=== PATIENT | male | born 1950 | race Caucasian/White ===

== ENCOUNTER 2018-07-06 12:38 | Emergency (ER) | payer MEDICARE, MEDICAID, SELFPAY ==
[2018-07-06 12:43] VITALS: BP 155/68; PULSE 66; RESP 12; TEMP 37.1; O2SAT 95
[2018-07-06 13:52] VITALS: BP 151/78; PULSE 60; RESP 12; TEMP 37.1; O2SAT 96
[2018-07-06 13:58] VITALS: BP 151/78; PULSE 60; RESP 12; TEMP 37.1; O2SAT 96
--- NOTE | 2018-07-07 08:38 | CMPROGNOTE_ITS ---
Care Management Progress Note 07/07-Alejandra POWERS requested assistance with a [facility] f/u as soon as possible for floaters. Referral, demographics, and provider note faxed to [facility] this am.
--- NOTE | 2018-07-07 08:51 | ED.GENADUL_ITS ---
Discharge Plan Disposition Patient Disposition: HOME Condition: Fair Discharge Details Chief Complaint: Trauma Clinical Impression: Hematoma, Contusion, Acute shoulder pain, Vitreous floaters of left eye Primary Care Provider: Zoie Lynne ED Provider: Alejandra Godwin Home Meds and New Rx's Prescriptions: Continue aspirin 81 mg Tablet,Chewable 81 mg PO DAILY RF: 0 methadone 10 mg/mL Solution 70 mg DAILY RF: 0 lisinopril 5 mg Tablet 5 mg PO DAILY RF: 0 Discharge Instructions Instructions: Contusion in Adults (ED), Hematoma (ED) Additional Instructions: Encourage hydration. Tylenol and/or Motrin as needed for discomfort. Gentle stretching and frequent ambulation to help with discomfort. Please follow up with primary care in one week for reevaluation of your buttock and shoulder pain. Please follow up with [facility] as soon as possible for reevaluation of the floaters in your left eye. If you develop fevers/chills, headache, eye pain, visual changes, altered sensation in your legs, weakness, change in bowel or bladder habits or other new/worsening symptoms please seek care urgently once again. Referrals: Zoie Lynne [Primary Care Provider] - Discharge Data Discharge Date/Time-TO BE ENTERED AT DEPARTURE: 07/06/18 14:00 Medical Decision Making Patient presents today with chief complaint of right buttock ecchymosis. Patient reports that he fell 3 days ago from a ladder. Does not sound that he fell directly from ladder but rather try to catch himself on the way down. Landed primarily on the right buttock. States that initially, he was endorsing some right shoulder pain as well as right-sided buttock pain. The shoulder has improved. Patient has full range of motion of the right shoulder. No pain with Neer or Randhawa. Normal speeds exam. No Willie deformity. Strength is 5 out of 5 compared to the contralateral side. No sensory deficit. His primary concern today is his right buttock. Patient does have a large area of ecchymosis. He was concerned that the ecchymotic area has been spreading. He did have a central area of focal swelling which is where patient is maximally tender. No pain with palpation about the pelvis or pelvic testing. No pain with ambulation. Patient is slightly anxious and restless, frequently moving about the room with no signs of discomfort. He reports that over the past 3 days, the ecchymosis has been spreading. He is particularly concerned that it has been spreading more towards midline. We discussed that ecchymosis can spread and does not often stay in the initial area of discomfort. He is not having any midline discomfort with palpation over spine. He has full range of motion of the spine. No sensory deficit, saddle paresthesias, weakness in the lower extremities. Neuro exam is intact. At the time of the incident, the patient did not fall or strike his head. No loss of consciousness. At this point, in regard to the patient's chief complaint of right buttock ecchymosis, I tried to offer reassurance and we discussed is not unusual for bruising to spread over time. At this point, I do not feel that any imaging is warranted as the patient is not really having any discomfort has continued to do his typical daily activities without hindrance. Patient also states that, in an unrelated incident, he began noting spider webs the left eye. He denies any change in the vision. Feels that the spider webs are worse particularly with movement of the head. He is not having any eye pain. Pupils are equal round and reactive. Visual hannah seem to be intact on testing. He denies any loss in the vision. Does not wear corrective lenses or contacts. States that he does frequently work with heavy tools and reports that he may have gotten struck in the left eye but is unclear with no definitive mechanism. He denies any foreign body sensation. Conjunctiva is clear, is not injected. No tearing, discharge. He reports is not itchy. Exam is benign. I am concerned of the floaters but feel that this is something that will need to be followed up with ophthalmology. I have advised that he contact [facility] tomorrow to schedule appointment as soon as possible for reevaluation. Patient was given strict return precautions for all of his above complaints. Advised to follow-up with primary care within the next week for reexamination of his buttock and can continued pain she have any. I advised that he contact [facility] as above. Advised he may return to the emergency department anytime with any new or worsening symptoms. All his questions and concerns were addressed and he is in agreement with this plan HPI General Mode of arrival: ambulatory . Date/Time Provider Initiated Documentation: 07/06/18 12:57 . Limitations to Documentation: no limitations . Information obtained by: patient . History of Present Illness 68 year old M presents to the emergency department with the chief complaint of right buttock pain, described as mild, with intensity rated at 3. Quality is described as aching, and is localized to the buttocks and right. Patient reports no radiation and extremity (has isolated right shoulder pain as well which has greatly improved); denies radiation to back, neck, abdomen and flank. Patient started experiencing this day(s) (3) and it has been constant. Immobilization improves symptom(s), Movement worsens symptoms . Patient notes no other symptoms. and rash (ecchymosis to right buttock); denies confusion, chest pain, cough, fever/chills, headaches, loss of appetite, nausea/ vomiting, shortness of breath, syncope and weakness. Patient did receive the following treatments prior to arrival, none Related Data Home Medications Medication Instructions Recorded Confirmed aspirin 81 mg PO DAILY 07/06/18 07/06/18 lisinopril 5 mg PO DAILY 07/06/18 07/06/18 methadone 70 mg DAILY 07/06/18 07/06/18 Allergies Allergy/AdvReac Type Severity Reaction Status Date / Time No Known Allergies Allergy Unverified 07/06/18 12:56 General Stated Complaint: Trauma KWAME: 3 Review of Systems Constitutional Reports as per HPI, Denies chills, Denies fatigue, Denies fever(s), Denies headache(s) and Denies malaise Eyes Denies blurry vision, Denies change in vision, Denies diplopia, Denies eye discharge, Reports floaters (Patient reports that, in an unrelated issue, he has had spider webs over his left eye intermittently for the past 1.5 weeks. States that when he moves his head he noted floaters. No FB sensation, no tearing, no loss of vision. No eye pain, no discharge), Denies irritation, Denies itchy eyes, Denies loss of peripheral vision, Denies loss of vision, Denies eye pain, Denies requires corrective lenses, Denies seeing flashes, Denies photophobia, Denies spots in vision and Denies tunnel vision ENT Denies vertigo, Denies dizziness, Denies facial pain, Denies headache(s), Denies nasal congestion, Denies nasal discharge, Denies neck pain, Denies sinus pain, Denies sinus pressure and Denies sore throat Cardiovascular Denies chest pain, Denies chest pain with activity, Denies syncope, Denies lightheadedness, Denies dyspnea and Denies dyspnea on exertion Respiratory Denies cough, Denies pain on inspiration, Denies dyspnea, Denies dyspnea on exertion and Denies wheezing Gastrointestinal Denies abdominal pain, Denies change in bowel habits, Denies nausea and Denies vomiting Genitourinary Denies dysuria, Denies flank pain, Denies testicular pain, Denies urinary frequency, Denies urinary hesitancy, Denies urinary incontinence and Denies urinary urgency Musculoskeletal Reports as per HPI, Denies abnormal gait, Reports back pain (right buttock pain associated with fall 3 days ago), Denies deformity, Denies joint swelling, Denies limited range of motion, Denies muscle cramps, Denies muscle weakness, Denies neck pain, Denies numbness, Denies radiating pain into limb, Denies stiffness and Denies tingling Integumentary/Breasts Reports as per HPI and Reports other (ecchymosis to right buttock) Neurologic Denies abnormal movements, Denies abnormal gait, Denies confusion, Denies vertigo, Denies dizziness, Denies syncope, Denies headache(s), Denies lack of coordination, Denies focal weakness, Denies loss of vision, Denies memory loss, Denies numbness, Denies tingling and Denies paresthesias Psychiatric Denies confusion and Denies memory loss Endocrine Denies fatigue Allergic/Immunologic Denies itchy eyes and Denies wheezing [facility] Social History Smoking/Tobacco Use Status: Current every day Exam Const General: cooperative, healthy appearing, comfortable, no acute distress and well developed Nutritional Appearance: average body habitus and well nourished Orientation: alert, awake and oriented x3 HENMT Head: normal to inspection, no palpable skull fracture, normocephalic, atraumatic, no Finn's sign, no occipital foramen tenderness, no raccoon eyes and No periorbital ecchymosis Ears: hearing grossly normal bilaterally, external ears normal and TM's normal bilaterally General nose exam: external nose normal and nares normal Face and sinus: normal facial exam, sinuses nontender and face symmetric Mouth: oral mucosae normal, lip normal, tongue normal and moist mucous membranes Teeth and gingiva: poor dentition Throat: posterior oropharynx normal, tonsils normal and uvula midline Eyes General: appearance normal, both eyes and all related structures Visual Hannah: normal visual hannah by confrontation Alignment and Position: alignment normal and position normal Periorbital: periorbital findings normal Eyelids: eyelids normal Conjunctivae: conjunctivae normal Sclera: sclerae normal Cornea: corneas normal Pupils: PERRL, normal by confrontation and accommodation normal EOM: EOM intact bilaterally Direct ophthalmoscopy: normal light reflex Neck Neck: normal visual inspection, full ROM, trachea midline and nontender Chest Chest: normal inspection of the chest, normal palpation of entire chest wall, no crepitus and no localized rib tenderness Resp Effort & Inspection: normal respiratory effort, able to speak in complete sentences and no respiratory distress Auscultation: clear to auscultation bilaterally, no rales, no rhonchi and no wheezes Cardio Rate: regular rate Rhythm: regular rhythm Heart Sounds: S1 normal and S2 normal GI Inspection: normal to inspection, no abdominal wall ecchymosis, no edema, non- distended and no incisions Palpation: soft, no hepatosplenomegaly, not firm, no guarding, no hernias, not rigid and nontender Auscultation: normal bowel sounds Back/Spine/Pelvis Pelvis: no pain with anterior-posterior compression, no pain with lateral compression, buttock tenderness on the right (right buttock has large area of ecchymosis with central area of swelling) and buttock swelling Sacrum: no ecchymosis and no tenderness Coccyx: no swelling and no tenderness Back/spine/pelvis image: 2 1. area of ecchymosis, central 4cm area of swelling noted. Pain with palpation. Spares midline Skin General skin exam: ecchymosis (as above) Rashes: no rashes Wounds: no wounds Neuro General: alert, awake, oriented x3, gait normal, tone normal, moves all extremities, normal light touch, pain and propioception, no meningeal signs, no focal motor deficits, CN's II-XI intact bilaterally and deep tendon reflexes 2+ bilaterally Cranial Nerves: CN's II-XI intact bilaterally Cognition: normal cognition Speech: speech normal Gait: normal gait Motor: muscle tone normal throughout, strength 5/5 throughout and no pronator drift Sensory Exam: no sensory deficits noted DTR's: Rt Biceps: 2+, Lt Biceps: 2+, Rt Brachioradialis: 2+, Lt Brachioradialis : 2+, Rt Patellar: 2+, Lt Patellar: 2+, Rt Ankle: 2+ and Lt Ankle: 2+ Plantar Reflexes: Downgoing: bilateral Coordination: [id number] test normal, [id number] test normal, Romberg test normal and rapid alternating movement UE normal Pupils: Normal pupillary reactivity/response: bilateral Extrem General: normal to inspection, full ROM, normal capillary refill, no joint enlargement, no pedal edema, no calf tenderness, normal gait and no limp Right upper extremity: normal to inspection, full ROM, normal capillary refill and shoulder/upper arm Details: normal to inspection and normal ROM; no tenderness (patient had voiced discomfort and gestured anteriorly over the right shoulder but none was elicited on exam), no swelling, no abrasions, no lacerations, no ecchymosis, no crepitus, no deformity and no unusual warmth Right lower extremity: normal to inspection (ecchymosis to right buttock, otherwise without abnormality) and full ROM Left lower extremity: normal to inspection and full ROM Psych Appearance: grossly normal Mental Status: mental status grossly normal Speech and Movement: speech and movement normal and restless Course Vital Signs Temperature 37.1 C 07/06/18 12:43 Pulse 66 07/06/18 12:43 Respiratory Rate 12 07/06/18 12:43 Blood Pressure 155/68 H 07/06/18 12:43 Pulse Oximetry 95 07/06/18 12:43 Temperature 37.1 C 07/06/18 13:58 Temperature Source Temporal Artery Scan 07/06/18 13:52 Pulse 60 07/06/18 13:58 Respiratory Rate 12 07/06/18 13:58 Respiratory Effort 07/06/18 13:14 Respiratory Depth Normal 07/06/18 13:14 Respiratory Pattern Normal 07/06/18 13:14 Blood Pressure 151/78 H 07/06/18 13:58 Blood Pressure Position Sitting 07/06/18 12:43 Pulse Oximetry 96 07/06/18 13:58 Oxygen Delivery Method Room Air 07/06/18 13:52 Oxygen Flow Rate 0 07/06/18 13:52 Pain Level 3 07/06/18 13:58
== END 2018-07-06 14:00 | disposition home or self-care (01) ==
PROVIDERS: Emergency Provider Physician Assistant; PCP Family Medicine
DX: S30.0XXA Contusion of lower back and pelvis, initial encounter (principal); M25.511 Pain in right shoulder; H43.392 Other vitreous opacities, left eye; W11.XXXA Fall on and from ladder, initial encounter
CPT/HCPCS: 99283

== ENCOUNTER 2022-06-20 18:30 | Outpatient (REF) | payer MEDICARE, MEDICAID, SELFPAY ==
[2022-06-20 15:48] LABS: Abs Immature Grans 0.01 10^3/uL (0.0-0.06); Absolute Basophil Count 0.04 10^3/uL (0.0-0.2); Absolute Eosinophil Count 0.09 10^3/uL (0.0-0.7); Absolute Lymphocyte Count 1.41 10^3/uL (1.2-3.4); Absolute Monocyte Count 0.57 10^3/uL (0.1-0.8); Absolute Neutrophil Count 5.08 10^3/uL (1.2-6.7); Basophils % 0.6; Eosinophils % 1.3; HCT 38.3 % (40.0-50.0); Immature Grans % 0.1; Lymphocytes % 19.6; MCHC 33.9 % (32.0-36.0); MCV 91 fL (80-95); MPV 11.4 fL (8.0-11.0); Monocytes % 7.9; Neutrophils % 70.5; Platelet Count 146 10^3/uL (130-400); RBC 4.19 10^6/uL (4.36-5.78); RDW 11.9 % (11.8-14.1); RDW-SD 39.8 fL
[2022-06-20 16:28] LABS: ALT 29 U/L (16-63); AST 33 U/L (15-37); Albumin 3.7 g/dL (3.4-5.0); Alkaline Phosphatase 72 U/L (46-116); Anion Gap 7.1 mmol/L (3-11); BUN 19 mg/dL (7-18); Bilirubin, Total 0.5 mg/dL (0.2-1.0); CO2 30.9 mmol/L (21.0-32.0); Calcium 8.8 mg/dL (8.5-10.1); Chloride 103 mmol/L (98-107); Estimated GFR 80.47 (mL/min/1.73m2); Glucose 108 mg/dL (74-106); Potassium 3.8 mmol/L (3.5-5.1); Sodium 141 mmol/L (136-145); Total Protein 6.7 g/dL (6.4-8.2)
[2022-06-20 17:20] LABS: Hemoglobin A1C 5.7 % (<5.7)
[2022-06-22 14:10] LABS: HCV RNA Detection Quantitative 10800000 IU/mL (Undetected); HCV RNA Qualitative Detected (Undetected)
== END 2022-06-20 18:31 | disposition home or self-care (01) ==
LOC: NCHCN 18:30
PROVIDERS: PCP Family Medicine; Visit Provider Family Medicine
DX: B19.20 Unspecified viral hepatitis C without hepatic coma (principal); I10 Essential (primary) hypertension; F17.210 Nicotine dependence, cigarettes, uncomplicated; R73.09 Other abnormal glucose
CPT/HCPCS: 80053; 87522; 83036; 85025

== ENCOUNTER 2022-07-29 18:23 | Observation (INO) | payer MEDICARE, MEDICAID, SELFPAY ==
[2022-07-29] VITALS (7 sets, daily range): BP systolic 130–153; BP diastolic 71–76; PULSE 52–75; RESP 12–20; TEMP 36–36.7; O2SAT 97–99
--- NOTE | 2022-07-29 18:15 | RT.EKG_ITS ---
APPROVED REPORT Exam: Resting ECG Reason for Exam: CHEST BURNING Patient Location: E HR:70 bpm ECG Measurements Heart Rate 70 AXIS MI 158 P 73 QRSd 124 QRS 31 QT 509 T 29 QTc 550 Conclusion Sinus rhythm...normal P axis, V-rate 60- 99 Paired ventricular premature complexes...sequence of 2 V complexes IVCD, consider RBBB...QRSd>120mS, terminal axis(90,270) Nonspecific repol abnormality, lateral leads...ST dep, T neg, I aVL V5 V6 Prolonged QT interval...QTc >500mS sinus rhythm, with frequent PVC, bigeminy, prolonged qtc
--- NOTE | 2022-07-29 18:30 | DI.RAD_ITS ---
Exam(s) XR PORTABLE CHEST AP EXAM: XR PORTABLE CHEST AP CLINICAL HISTORY: chest pain TECHNIQUE: 2D digital imaging was performed. COMPARISON: No exams were available for comparison FINDINGS: LUNGS: Clear. No pleural abnormality seen. HEART: Normal. AORTA: Normal. BONES: Unremarkable for age. Soft tissues: Unremarkable. IMPRESSION: No acute findings. DATA REPOSITORY: RADIATION DOSE DELIVERED:
--- NOTE | 2022-07-29 18:37 | W.ED.GENAD ---
Discharge Plan Disposition Patient Disposition: [facility] IN[facility] Condition: Improving Discharge Details Chief Complaint: Chest Pain Clinical Impression: Chest pain, Bigeminy, LIZZY (acute kidney injury), Elevated troponin Primary Care Provider: Zoie Lynne ED Provider: Jose R De Luna Home Meds and New Rx's Prescriptions: No Action aspirin 81 mg Tablet,Chewable 81 mg PO DAILY methadone 10 mg/mL Solution 95 mg DAILY Label Comments: Patient not clear on med concentration, but states taking 70mg daily, liquid lisinopril 5 mg Tablet 5 mg PO DAILY simvastatin 20 mg tablet Label Comments: TAKE ONE TABLET BY MOUTH EVERY EVENING DIRECTED Medical Decision Making 72-year-old male currently in the methadone program, family history of coronary disease, presents with anterior chest pain on exertion over the past several days worsening over the last couple of hours, patient is hemodynamically stable maintaining blood pressure, normal mental status, resolving chest pain from earlier, noted to be in bigeminy on EKG and apparent PACs and PVCs on telemetry, patient is alert oriented no respiratory distress consider ACS versus electrolyte abnormality versus medication reaction versus less likely PE or aortic pathology. Palpable pulse in the 30s given bigeminy with a rate in the 70s, will assess electrolytes, will obtain chest x-ray troponin, close reassessment of blood pressure mental status. Will likely contact [facility] cardiology pending labs and imaging. 19: 23 patient resting comfortably hemodynamically stable, intermittent bigeminy on telemetry that spontaneous conversion to sinus rhythm in the 60s. Mildly elevated troponin. Chest pain improving. Given relative elevation of creatinine consider slowed excretion of methadone due to LIZZY resulting in arrhythmia. Must also consider ACS. Have placed a call to [facility] cardiology for consultation. Patient given aspirin on arrival. Chest x-ray clear. Disposition likely admission for serial troponin and cardiac evaluation. 20: 03 resting comfortably asymptomatic. Has converted to sinus rhythm on the monitor will repeat EKG. Slightly elevated troponin. Evidence of LIZZY, has fluid bolus running. Consulted [facility] cardiology who agrees that this is most likely acute ischemia, agrees with admission for serial troponin cardiac evaluation. Patient amenable to admission. HPI General Date/Time Provider Initiated Documentation: 07/29/22 18:24. HPI Narrative: 72-year-old male history of substance abuse currently on methadone program, hypertension, family history of coronary disease presents with nonexertional chest pain over the last day worsening over the past several hours, nonradiating no nausea or vomiting no diaphoresis. No shortness of breath. Denies peripheral edema. Denies history of stenting or open heart surgery Related Data Home Medications Medication Instructions Recorded Confirmed aspirin 81 mg chewable tablet 81 mg PO DAILY 07/06/18 07/29/22 lisinopril 5 mg tablet 5 mg PO DAILY 07/06/18 07/29/22 methadone 10 mg/mL injection 95 mg DAILY 07/06/18 07/29/22 solution simvastatin 20 mg tablet tab 07/29/22 Allergies Allergy/AdvReac Type Severity Reaction Status Date / Time No Known Allergies Allergy Unverified 07/29/22 18:38 General Stated Complaint: Chest Pain KWAME: 2 Review of Systems Narrative: Review of Systems Constitutional: negative Eyes: negative ENT: negative Cardiovascular: Chest pain Respiratory: negative Gastrointestinal: negative : negative Musculoskeletal: negative Skin: negative Neurologic: negative Psych: negative PFSH All Active Problems (Updated 07/29/22 @ 20:05 by Jose R De Luna MD) Chest pain (Acute) Bigeminy (Acute) LIZZY (acute kidney injury) (Acute) Elevated troponin (Acute) Social History Smoking/Tobacco Use Status: Current every day Tobacco Type: cigarettes Smoking risk assessment performed?: Yes Alcohol Intake: former Details: Patient states he has not had a drink for 30 years. Currently trying to quit smoking. Do you feel safe at home: Yes Do you feel safe in your relationship?: Yes Exam Narrative Exam Narrative: Physical Examination General: alert, awake, cooperative, resting comfortably, no acute distress HEENT: normocephalic, atraumatic; PERRL, EOM intact, conjunctiva normal; no nasal discharge; moist mucous membranes, oral and pharyngeal mucosa normal, tolerating secretions Neck: supple, trachea midline; full ROM Chest: normal to inspection Respiratory: normal respiratory effort, speaking in full sentences, clear to auscultation, no wheezing, rales or rhonchi Cardiac: Bradycardia on palpable pulse, bigeminy on rhythm strip, S1S2 intact, no murmurs rubs or gallops GI: abdomen soft, non-tender, non-distended; no palpable mass or hepatosplenomegaly Skin: no lesions, rashes or trauma appreciated Neuro: AAOx3, normal speech, moving all extremities Extremities: No peripheral edema Psych: Appropriate mood and affect Course Vital Signs Vital signs: Vital Signs Temperature 36.6 C 07/29/22 18:26 Pulse 75 07/29/22 18:26 Respiratory Rate 12 07/29/22 18:26 Blood Pressure 153/71 H 07/29/22 18:26 Pulse Oximetry 99 07/29/22 18:26 Temperature 36.7 C 07/29/22 18:36 Temperature Source Oral 07/29/22 18:36 Pulse 75 07/29/22 18:26 Pulse 75 07/29/22 18:33 Respiratory Rate 17 07/29/22 18:33 Blood Pressure 153/71 H 07/29/22 18:26 Blood Pressure Position Supine 07/29/22 18:26 Pulse Oximetry 99 07/29/22 18:26 Oxygen Delivery Method Room Air 07/29/22 18:26 Oxygen Flow Rate 0 07/29/22 18:26 Pain Level 4 07/29/22 18:26
[2022-07-29] MEDS: Aspirin 81 MG CHEW 324 MG CH (18:41)
[2022-07-29 18:49] LABS: Abs Immature Grans 0.03 10^3/uL (0.0-0.06); Absolute Basophil Count 0.05 10^3/uL (0.0-0.2); Absolute Eosinophil Count 0.12 10^3/uL (0.0-0.7); Absolute Lymphocyte Count 3.11 10^3/uL (1.2-3.4); Absolute Neutrophil Count 5.07 10^3/uL (1.2-6.7); Basophils % 0.5; Eosinophils % 1.3; HCT 41.2 % (40.0-50.0); HGB 13.7 g/dL (13.5-17.5); Immature Grans % 0.3; Lymphocytes % 33.5; MCH 30.7 pg (27.0-33.0); MCHC 33.3 % (32.0-36.0); MCV 92 fL (80-95); MPV 10.9 fL (8.0-11.0); Monocytes % 9.7; Neutrophils % 54.7; Platelet Count 162 10^3/uL (130-400); RBC 4.46 10^6/uL (4.36-5.78); RDW 11.9 % (11.8-14.1); RDW-SD 40.7 fL; WBC 9.28 10^3/uL (4.4-10.8)
--- NOTE | 2022-07-29 18:50 | DI.VRAD_ITS ---
PROCEDURE INFORMATION: Exam: XR Chest Exam date and time: 07/29/2022 6:25 PM Age: 72 years old Clinical indication: Pain; Chest pressure TECHNIQUE: Imaging protocol: Radiologic exam of the chest. Views: 1 view. COMPARISON: No relevant prior studies available. FINDINGS: Lungs: Chronic interstitial prominence. No consolidation. Pleural spaces: No pleural effusion. No pneumothorax. Heart/Mediastinum: Tortuous aorta. No cardiomegaly. Bones/joints: Unremarkable. IMPRESSION: No acute findings. Dictated and Authenticated by: Deangelo Patel MD. Ordering:BRUNO Odell MD
--- NOTE | 2022-07-29 18:59 | NUR.NOTE ---
Patient called his sister.He gave the phone to this RN. Patient's situation explained. Janelle Donohue - [phone]
[2022-07-29 19:00] LABS: PTT Activated 24.7 sec (21.0-27.5); Prothrombin Time 10.4 sec (9.3-11.0)
[2022-07-29 19:10] LABS: ALT 20 U/L (16-63); AST 28 U/L (15-37); Albumin 4.2 g/dL (3.4-5.0); Alkaline Phosphatase 82 U/L (46-116); Anion Gap 6.4 mmol/L (3-11); BUN 18 mg/dL (7-18); Bilirubin, Total 0.6 mg/dL (0.2-1.0); CO2 32.6 mmol/L (21.0-32.0); CREATININE 1.5 mg/dL (0.70-1.30); Calcium 9.1 mg/dL (8.5-10.1); Chloride 101 mmol/L (98-107); Estimated GFR 49.47 (mL/min/1.73m2); Glucose 130 mg/dL (74-106); Potassium 3.7 mmol/L (3.5-5.1); Sodium 140 mmol/L (136-145); Total Protein 7.5 g/dL (6.4-8.2)
[2022-07-29 19:15] LABS: Troponin I 70 ng/L (<or=60)
[2022-07-29 19:25] LABS: TSH (W/Ref FT4) 4.96 uIU/mL (0.36-3.74)
[2022-07-29] MEDS: Normal Saline 500 ML 1000 ML IV (19:25)
--- NOTE | 2022-07-29 20:27 | HPE_ITS ---
Date of service: 07/29/22 Time of Service: 20:27 Assessment and Plan Assessment and plan (1) Chest pain: Status: Acute Assessment and plan: ACS not unlikely with objective findings at this point consisting of minimal elevation of troponin and (non-specific) ventricular bigeminy. It is also noted that this latest (and longer) episode included nausea. Would trend troponins and, if negative, plan on stress test in AM. CP: serial troponins, ETT x AM if negative HTN: usual Lisinopril Chronic pain: usual Methadone Tobacco (10/01 PPD): prn TD nicotine Reviewed ADS, requests Full Code History of Present Illness History of Present Illness Chief Complaint: CP Narrative: 72 male smoker with h/o hypertension -- here with 10 days of intermittent CP. Until today these episodes consisted of approx 15 minutes of a hot feeling in substernal area, non-radiating, w/o associated nausea, diaphoresis or SOB. These episodes have occurred while at rest, with no relation to position or subsequent activity and have resolved spontaneously. Today had one similar such episode, an d then this evening amin one that lasted longer, and associated with some mild nausea, prompting his visit to ER. In ER findings of note for ventricular bigeminy, no ischemic changes on EKG and troponin of 70. CXR negative. Patient received ASA. Pain resolved, total duration approx 1.5 hours,and bigeminy likewise resolved. Patient has been unaware of any arrythmia and it is not clear from the description whether the resolution of the pain and the bigeminy coincided. I was asked to evaluate for admission. At present patient states he feel perfectly well. Review of Systems Narrative: per HPI PFSH All Active Problems Chest pain (Acute) Bigeminy (Acute) LIZZY (acute kidney injury) (Acute) Elevated troponin (Acute) Social History Smoking/Tobacco Use Status: Current every day Tobacco Type: cigarettes Smoking risk assessment performed?: Yes Alcohol Intake: former Details: Patient states he has not had a drink for 30 years. Currently trying to quit smoking. Do you feel safe at home: Yes Do you feel safe in your relationship?: Yes Meds Allergies and Home Medications Allergies Allergy/AdvReac Type Severity Reaction Status Date / Time No Known Allergies Allergy Unverified 07/29/22 18:38 Home Medications Medication Instructions Recorded Confirmed Type aspirin 81 mg chewable tablet 81 mg PO DAILY 07/06/18 07/29/22 History lisinopril 5 mg tablet 5 mg PO DAILY 07/06/18 07/29/22 History methadone 10 mg/mL injection 95 mg DAILY 07/06/18 07/29/22 History solution simvastatin 20 mg tablet tab 07/29/22 History Exam Narrative Exam Narrative: 153/71, 75, 36.7, 25, 99% RA. HEENT atraumatic; necks upple, JVP<4cm; lungs clear; heart somewhat distant but RRR; abdomen soft and NT; extremities w/o edema, pulses 2+/=; neuro Ox3, lucid, moves all 4s Results Labs Result diagrams: 07/29/22 18:37 07/29/22 18:37 Labs: Laboratory Results - last 24 hr 07/29/22 07/29/22 07/29/22 18:37 18:37 18:37 WBC 9.28 RBC 4.46 Hgb 13.7 Hct 41.2 MCV 92 MCH 30.7 MCHC 33.3 RDW 11.9 Plt Count 162 MPV 10.9 Immature Gran % 0.3 Neutrophils % 54.7 Lymphocytes % 33.5 Monocytes % 9.7 Eosinophils % 1.3 Basophils % 0.5 Nucleated RBC % 0.0 Absolute Neutrophils 5.07 Absolute Lymphocytes 3.11 Absolute Monocytes 0.90 H Absolute Eosinophils 0.12 Absolute Basophils 0.05 PT INR APTT Sodium 140 Potassium 3.7 Chloride 101 Carbon Dioxide 32.6 H Anion Gap 6.4 BUN 18 Creatinine 1.5 H Est GFR (CKD-EPI 2020) 49.47 Glucose 130 H Calcium 9.1 Magnesium 2.0 Total Bilirubin 0.6 AST 28 ALT 20 Alkaline Phosphatase 82 Troponin I 70 H* Total Protein 7.5 Albumin 4.2 TSH 4.96 H Free T4 1.10 07/29/22 18:37 WBC RBC Hgb Hct MCV MCH MCHC RDW Plt Count MPV Immature Gran % Neutrophils % Lymphocytes % Monocytes % Eosinophils % Basophils % Nucleated RBC % Absolute Neutrophils Absolute Lymphocytes Absolute Monocytes Absolute Eosinophils Absolute Basophils PT 10.4 INR 1.0 APTT 24.7 Sodium Potassium Chloride Carbon Dioxide Anion Gap BUN Creatinine Est GFR (CKD-EPI 2020) Glucose Calcium Magnesium Total Bilirubin AST ALT Alkaline Phosphatase Troponin I Total Protein Albumin TSH Free T4 Last Vital Signs Temp 36.7 C 07/29/22 18:36 Pulse 75 07/29/22 18:26 Resp 20 07/29/22 19:17 BP 153/71 H 07/29/22 18:26 Pulse Ox 99 07/29/22 18:26
[2022-07-29 21:15] LABS: *AMPHETAMINES SCREEN URINE Negative (Negative); *BARBITURATES SCREEN URINE Negative (Negative); *BENZODIAZEPINES SCREEN URINE Negative (Negative); Cannabinoids THC Positive (Negative); Cocaine Screen,Urine Negative (Negative); METHADONE URINE SCREEN Positive (Negative); OPIATES URINE SCREEN Negative (Negative)
[2022-07-29 21:17] LABS: Tricyclic Antidepressants Negative (Negative)
[2022-07-29 22:32] LABS: Source Nasal/Nares
[2022-07-29 22:48] LABS: Troponin I 979 ng/L (<or=60)
--- NOTE | 2022-07-29 22:55 | NUR.NOTE ---
Patient's sister, Janelle, was called apprising her of his admission to room 225, Med Surg unit.
[2022-07-29 23:02] LABS: COVID-19 PCR Negative (Negative)
[2022-07-29 23:22] LABS: PTT Activated 25.5 sec (21.0-27.5)
--- NOTE | 2022-07-30 00:15 | RT.EKG_ITS ---
APPROVED REPORT Exam: Resting ECG Reason for Exam: elevated troponin Patient Location: I HR:52 bpm ECG Measurements Heart Rate 52 AXIS GA 203 P 58 QRSd 134 QRS 21 QT 534 T 50 QTc 497 Conclusion Sinus rhythm...normal P axis, V-rate 50- 99 Ventricular premature complex...V complex w/ short R-R interval IVCD, consider atypical RBBB...QRSd>120mS, terminal axis(90,270)
[2022-07-30] MEDS: Clopidogrel 300 MG TAB PO (02:40)
[2022-07-30 02:55] VITALS: BP 130/68; PULSE 47; RESP 12; TEMP 36; O2SAT 96
[2022-07-30] MEDS: Lactated Ringers 1,000 ML 75 ML IV (05:09)
[2022-07-30 06:43] LABS: PTT Activated 78.7 sec (21.0-27.5)
[2022-07-30 06:57] LABS: Troponin I 1956 ng/L (<or=60)
[2022-07-30 07:24] VITALS: BP 127/75; PULSE 44; RESP 15; TEMP 36.1; O2SAT 98
[2022-07-30 07:40] VITALS: BP 142/73; PULSE 52; RESP 18; TEMP 36.4; O2SAT 97
[2022-07-30] MEDS: Lisinopril 5 MG TAB PO (08:49)
[2022-07-30] MEDS: Aspirin 81 MG CHEW PO (08:49)
[2022-07-30] MEDS: Clopidogrel 75 MG TAB PO (08:49)
--- NOTE | 2022-07-30 10:01 | DSE_ITS ---
Date of service: 07/30/22 Time of Service: 10:01 DS: Diagnosis Discharge Diagnosis (1) NSTEMI (non-ST elevated myocardial infarction): Status: Acute (2) QT prolongation: Status: Acute (3) Opioid dependence: Status: Acute (4) LIZZY (acute kidney injury): Status: Acute (5) Hypertension: Status: Chronic (6) Hyperlipidemia: Status: Acute (7) Tobacco abuse: Status: Acute Discharge Plan Disposition Patient Disposition: [facility] Condition: Improving Discharge Details Reason For Visit: CP Admit Date/Time: 07/29/22 20:43 Admit Provider: Miguel Delvalle Attending Provider: Miguel Delvalle Primary Care Provider: Zoie Lynne [facility] Hospital Course: Mr Ladd is a 72 year old male with PMHx of hypertension, hyperlipidemia, tobacco abuse, opioid dependence of methadone therapy through [facility], who was observed on [facility] hospitalist service from 07/29/22 until 07/30/22 for an NSTEMI, having presented with anterior chest pain at rest. He did have dynamic changes in his EKG and a rise of the troponin (70->979->1956 ng/L Troponin I (cut off for normal<60)). He was initiated treated with aspirin, plavix, and a heparin infusion. He was accepted in transfer to [facility] cardiology service under Dr Mike pending bed availability. While observed here, the patient did not have any recurrences of chest discomfort. He was in sinus bradycardia with 1st degree on the monitor with the lowest heart rate being 44. He has been having frequent PVCs. On presentation, he had a QTc interval of 550 ms, which warranted holding of methadone. Additionally, methadone interacts wiht plavix, so it remains on hold even though his QT/QTc prolongation have resolved. The patient is NPO and is stable and agreeable to transfer to [facility] today. Care for patient as well as completion of his discharge summary on day of transfer took 40 minutes. Please, look at MAR for list of inpatient medications. The list of medications below reflects outpatient prescriptions. Home Meds and New Rx's Prescriptions: No Action aspirin 81 mg Tablet,Chewable 81 mg PO DAILY methadone 10 mg/mL Solution 95 mg DAILY Label Comments: Patient not clear on med concentration, but states taking 70mg daily, liquid lisinopril 5 mg Tablet 5 mg PO DAILY simvastatin 20 mg tablet Label Comments: TAKE ONE TABLET BY MOUTH EVERY EVENING DIRECTED Discharge Instructions Instructions: Heart Attack (DC) Stand Alone Forms: Nursing Discharge Form Referrals: Zoie Lynne [Primary Care Provider] - (Follow up per discharge from [facility]) Activity:: bed to chair Equipment/Supplies:: No Equipment Needed Diet:: NPO Discharge Orders Discharge Orders: Discharge Order (Routine); Ordered 07/30/22 Ordered By: Winifred Mckee DS: Summary Time Spent with Patient providing and/or coordinating discharge services: Greater than 30 minutes Status at Discharge Functional status at discharge: independent ambulation Overall status at discharge: patient is progressing back to baseline Mental Status: mental status grossly normal Speech and Movement: speech and movement normal Mood: congruent mood Affect: normal affect Exam Narrative Exam Narrative: General: Pleasant male who looks younger than his stated age, A&Ox3, NAD HEENT: EOMI, MMM Heart: RRR, no m/r/g Lungs: CTAB Abdomen: soft, nontender, nondistended Extremities: no edema BLEs Psych Mental Status: mental status grossly normal Speech and Movement: speech and movement normal Mood: congruent mood Affect: normal affect DS: Data Vitals/I&O Vitals and I&O: Vital Signs Temperature 36.1 C L 07/30/22 07:24 Temperature Source Tympanic 07/30/22 07:24 Pulse 44 L 07/30/22 07:24 Pulse Rhythm Regular 07/29/22 22:51 Pulse 75 07/29/22 18:33 Respiratory Rate 15 07/30/22 07:24 Respiratory Effort Non-Labored 07/29/22 22:51 Respiratory Depth Normal 07/29/22 22:51 Blood Pressure 127/75 07/30/22 07:24 Blood Pressure Position Supine 07/29/22 18:26 Pulse Oximetry 98 07/30/22 07:24 Oxygen Delivery Method Room Air 07/30/22 07:24 Oxygen Flow Rate 0 07/30/22 07:24 Pain Level 0 07/30/22 02:55 Intake & Output 07/29/22 07/29/22 07/30/22 11:59 23:59 11:59 Intake Total 571.408 / 571.408 Output Total 600 / 600 Balance -590 / -590 571.408 / 571.408 Weight 74.843 kg Intake: IV 571.408 / 571.408 Output: Urine 600 / 600 Other: Urine Color Light Karen Urine Appearance Clear Urine Odor Normal Voiding Methods Toilet Data Completed and Pending Completed studies during hospitalization [Text1]: CXR; No acute? findings. Labs on day of discharge: Labs from last 24 hours 07/30/22 07/30/22 07/30/22 13:00 05:40 05:40 WBC RBC Hgb Hct MCV MCH MCHC RDW Plt Count MPV Immature Gran % Neutrophils % Lymphocytes % Monocytes % Eosinophils % Basophils % Nucleated RBC % Absolute Neutrophils Absolute Lymphocytes Absolute Monocytes Absolute Eosinophils Absolute Basophils PT INR APTT Pending 78.7 H Sodium Potassium Chloride Carbon Dioxide Anion Gap BUN Creatinine Est GFR (CKD-EPI 2020) Glucose Calcium Magnesium Total Bilirubin AST ALT Alkaline Phosphatase Troponin I 1956 H* Total Protein Albumin TSH Free T4 Urine Opiates Screen Urine Methadone Screen Ur Barbiturates Screen Ur Tricyclics Screen Ur Amphetamines Screen U Benzodiazepines Scrn Urine Cocaine Screen Ur THC Screen COVID-19 Source SARS-CoV-2 (PCR) 07/29/22 07/29/22 07/29/22 23:02 22:30 22:15 WBC RBC Hgb Hct MCV MCH MCHC RDW Plt Count MPV Immature Gran % Neutrophils % Lymphocytes % Monocytes % Eosinophils % Basophils % Nucleated RBC % Absolute Neutrophils Absolute Lymphocytes Absolute Monocytes Absolute Eosinophils Absolute Basophils PT INR APTT 25.5 Sodium Potassium Chloride Carbon Dioxide Anion Gap BUN Creatinine Est GFR (CKD-EPI 2020) Glucose Calcium Magnesium Total Bilirubin AST ALT Alkaline Phosphatase Troponin I 979 H* Total Protein Albumin TSH Free T4 Urine Opiates Screen Urine Methadone Screen Ur Barbiturates Screen Ur Tricyclics Screen Ur Amphetamines Screen U Benzodiazepines Scrn Urine Cocaine Screen Ur THC Screen COVID-19 Source Nasal/Nares SARS-CoV-2 (PCR) Negative 07/29/22 07/29/22 07/29/22 20:45 18:37 18:37 WBC 9.28 RBC 4.46 Hgb 13.7 Hct 41.2 MCV 92 MCH 30.7 MCHC 33.3 RDW 11.9 Plt Count 162 MPV 10.9 Immature Gran % 0.3 Neutrophils % 54.7 Lymphocytes % 33.5 Monocytes % 9.7 Eosinophils % 1.3 Basophils % 0.5 Nucleated RBC % 0.0 Absolute Neutrophils 5.07 Absolute Lymphocytes 3.11 Absolute Monocytes 0.90 H Absolute Eosinophils 0.12 Absolute Basophils 0.05 PT 10.4 INR 1.0 APTT 24.7 Sodium Potassium Chloride Carbon Dioxide Anion Gap BUN Creatinine Est GFR (CKD-EPI 2020) Glucose Calcium Magnesium Total Bilirubin AST ALT Alkaline Phosphatase Troponin I Total Protein Albumin TSH Free T4 Urine Opiates Screen Negative Urine Methadone Screen Positive A Ur Barbiturates Screen Negative Ur Tricyclics Screen Negative Ur Amphetamines Screen Negative U Benzodiazepines Scrn Negative Urine Cocaine Screen Negative Ur THC Screen Positive A COVID-19 Source SARS-CoV-2 (PCR) 07/29/22 07/29/22 18:37 18:37 WBC RBC Hgb Hct MCV MCH MCHC RDW Plt Count MPV Immature Gran % Neutrophils % Lymphocytes % Monocytes % Eosinophils % Basophils % Nucleated RBC % Absolute Neutrophils Absolute Lymphocytes Absolute Monocytes Absolute Eosinophils Absolute Basophils PT INR APTT Sodium 140 Potassium 3.7 Chloride 101 Carbon Dioxide 32.6 H Anion Gap 6.4 BUN 18 Creatinine 1.5 H Est GFR (CKD-EPI 2020) 49.47 Glucose 130 H Calcium 9.1 Magnesium 2.0 Total Bilirubin 0.6 AST 28 ALT 20 Alkaline Phosphatase 82 Troponin I 70 H* Total Protein 7.5 Albumin 4.2 TSH 4.96 H Free T4 1.10 Urine Opiates Screen Urine Methadone Screen Ur Barbiturates Screen Ur Tricyclics Screen Ur Amphetamines Screen U Benzodiazepines Scrn Urine Cocaine Screen Ur THC Screen COVID-19 Source SARS-CoV-2 (PCR) PFSH All Active Problems (Updated 07/30/22 @ 10:09 by Winifred Mckee MD) Tobacco abuse (Acute) Hyperlipidemia (Acute) Hypertension (Chronic) Opioid dependence (Acute) QT prolongation (Acute) NSTEMI (non-ST elevated myocardial infarction) (Acute) Chest pain (Acute) Bigeminy (Acute) LIZZY (acute kidney injury) (Acute) Elevated troponin (Acute) Social History Smoking/Tobacco Use Status: Current every day Tobacco Type: cigarettes Smoking risk assessment performed?: Yes Alcohol Intake: former Details: Patient states he has not had a drink for 30 years. Currently trying to quit smoking. Do you feel safe at home: Yes Do you feel safe in your relationship?: Yes
[2022-07-30 10:11] LABS: Lab Add On Test DONE
[2022-07-30 10:40] LABS: Anion Gap 8.6 mmol/L (3-11); BUN 16 mg/dL (7-18); CO2 29.4 mmol/L (21.0-32.0); Calcium 8.6 mg/dL (8.5-10.1); Chloride 106 mmol/L (98-107); Estimated GFR 80.47 (mL/min/1.73m2); Glucose 85 mg/dL (74-106); Potassium 3.4 mmol/L (3.5-5.1); Sodium 144 mmol/L (136-145)
== END 2022-07-30 11:00 | disposition short-term general hospital (02) ==
LOC: ER 20:59 → MS 22:38
PROVIDERS: Internal Medicine; Admitting Provider General Practice; Emergency Provider Emergency Medicine; PCP Family Medicine; Visit Provider General Practice
DX: I21.4 Non-ST elevation (NSTEMI) myocardial infarction (principal); R94.31 Abnormal electrocardiogram [ECG] [EKG]; R00.8 Other abnormalities of heart beat; F11.20 Opioid dependence, uncomplicated; F17.210 Nicotine dependence, cigarettes, uncomplicated; E78.5 Hyperlipidemia, unspecified; N17.9 Acute kidney failure, unspecified; I10 Essential (primary) hypertension; Z20.822 Contact with and (suspected) exposure to COVID-19
CPT/HCPCS: 36415; 80048; 80053; 80307; 87635; 93005; 96360; 96361; 96365; 96366; 96376; 99284; 99285; 71045; 83735; 84439; 84443; 84484; 85025; 85610; 85730; 93010; 99217; 99219; G0378

== ENCOUNTER 2022-08-24 15:50 | Outpatient (REF) | payer MEDICARE, MEDICAID, SELFPAY ==
[2022-08-24 20:57] LABS: Anion Gap 3.5 mmol/L (3-11); BUN 22 mg/dL (7-18); CO2 32.5 mmol/L (21.0-32.0); CREATININE 1.2 mg/dL (0.70-1.30); Calcium 8.9 mg/dL (8.5-10.1); Chloride 103 mmol/L (98-107); Estimated GFR 64.65 (mL/min/1.73m2); Glucose 115 mg/dL (74-106); Potassium 3.8 mmol/L (3.5-5.1); Sodium 139 mmol/L (136-145)
[2022-08-27 10:46] LABS: HIV-1/2 Ag & Ab Screen Negative (Negative)
[2022-08-27 11:32] LABS: Hepatitis C Ab w Rflx HCV PCR Reactive (Negative)
[2022-08-29 12:39] LABS: HCV RNA Qualitative Detected (Undetected)
== END 2022-08-24 15:51 | disposition home or self-care (01) ==
LOC: NCHCN 15:50
PROVIDERS: PCP Family Medicine; Visit Provider Family Medicine
DX: B19.20 Unspecified viral hepatitis C without hepatic coma (principal); E78.5 Hyperlipidemia, unspecified; I25.10 Atherosclerotic heart disease of native coronary artery without angina pectoris; I21.4 Non-ST elevation (NSTEMI) myocardial infarction
CPT/HCPCS: 80048; 86803; 87389; 87522

== ENCOUNTER 2022-09-28 10:39 | Outpatient (RCR) | payer MEDICARE, MEDICAID, SELFPAY | END 2022-09-29 23:59 | disposition home or self-care (01) | LOC: CR 10:39 | PROVIDERS: PCP Family Medicine; Referring Provider Family Medicine; Visit Provider Internal Medicine Cardiovascular Disease | DX: I25.2 Old myocardial infarction (principal); Z95.1 Presence of aortocoronary bypass graft; Z51.89 Encounter for other specified aftercare | CPT/HCPCS: S9472 ==

== ENCOUNTER 2022-10-24 10:00 | Outpatient (RCR) | payer MEDICARE, MEDICAID, SELFPAY | END 2022-10-30 23:59 | disposition home or self-care (01) | LOC: CR 10:00 | PROVIDERS: PCP Family Medicine; Referring Provider Family Medicine; Visit Provider Internal Medicine Cardiovascular Disease | DX: I25.2 Old myocardial infarction (principal); Z95.1 Presence of aortocoronary bypass graft; Z51.89 Encounter for other specified aftercare | CPT/HCPCS: S9472 ==

== ENCOUNTER 2022-11-26 10:00 | Outpatient (RCR) | payer MEDICARE, MEDICAID, SELFPAY | END 2022-11-27 23:59 | disposition home or self-care (01) | LOC: CR 10:00 | PROVIDERS: PCP Family Medicine; Referring Provider Family Medicine; Visit Provider Internal Medicine Cardiovascular Disease | DX: I25.2 Old myocardial infarction (principal); Z95.1 Presence of aortocoronary bypass graft; Z51.89 Encounter for other specified aftercare | CPT/HCPCS: S9472 ==

== ENCOUNTER 2022-12-28 10:22 | Outpatient (RCR) | payer MEDICARE, MEDICAID, SELFPAY | END 2022-12-28 23:59 | disposition home or self-care (01) | LOC: CR 10:22 | PROVIDERS: PCP Family Medicine; Referring Provider Family Medicine; Visit Provider Internal Medicine Cardiovascular Disease | DX: I25.2 Old myocardial infarction (principal); I25.10 Atherosclerotic heart disease of native coronary artery without angina pectoris | CPT/HCPCS: S9472 ==

== ENCOUNTER 2023-05-21 09:09 | Outpatient (REF) | payer MEDICARE, MEDICAID, SELFPAY ==
[2023-05-21 14:29] LABS: ALT 79 U/L (16-63); AST 76 U/L (15-37); Albumin 3.5 g/dL (3.4-5.0); Alkaline Phosphatase 77 U/L (46-116); Anion Gap 3.3 mmol/L (3-11); BUN 16 mg/dL (7-18); Bilirubin, Total 0.8 mg/dL (0.2-1.0); CO2 34.7 mmol/L (21.0-32.0); CREATININE 1.2 mg/dL (0.70-1.30); Calcium 8.9 mg/dL (8.5-10.1); Calculated LDL 47 mg/dL (<100); Chloride 103 mmol/L (98-107); Cholesterol 111 mg/dL (<200); Estimated GFR 64.65 (mL/min/1.73m2); Glucose 90 mg/dL (74-106); HDL Cholesterol 45 mg/dL (40-60); Potassium 4.8 mmol/L (3.5-5.1); Sodium 141 mmol/L (136-145); Total Protein 6.3 g/dL (6.4-8.2); Triglyceride 97 mg/dL (<150)
== END 2023-05-21 09:10 | disposition home or self-care (01) ==
LOC: NCHCN 09:09
PROVIDERS: PCP Family Medicine; Visit Provider Family Medicine
DX: I10 Essential (primary) hypertension (principal); I25.10 Atherosclerotic heart disease of native coronary artery without angina pectoris; E78.5 Hyperlipidemia, unspecified
CPT/HCPCS: 80053; 80061

== ENCOUNTER 2024-02-11 21:44 | Outpatient (REF) | payer MEDICARE, MEDICAID, SELFPAY ==
[2024-02-11 21:52] LABS: Abs Immature Grans 0.01 10^3/uL (0.0-0.06); Absolute Basophil Count 0.01 10^3/uL (0.0-0.2); Absolute Eosinophil Count 0.05 10^3/uL (0.0-0.7); Absolute Lymphocyte Count 0.45 10^3/uL (1.2-3.4); Absolute Monocyte Count 0.35 10^3/uL (0.1-0.8); Basophils % 0.4 %; Eosinophils % 2.1 %; HCT 37.2 % (40.0-50.0); HGB 12.7 g/dL (13.5-17.5); Immature Grans % 0.4 %; MCH 31.2 pg (27.0-33.0); MCHC 34.1 % (32.0-36.0); MCV 91 fL (80-95); MPV 12.2 fL (8.0-11.0); Monocytes % 14.8 %; Neutrophils % 63.3 %; RBC 4.07 10^6/uL (4.36-5.78); RDW 12.5 % (11.8-14.1); RDW-SD 41.3 fL; WBC 2.37 10^3/uL (4.4-10.8)
[2024-02-11 22:00] LABS: ALT 81 U/L (16-63); AST 91 U/L (15-37); Albumin 3.6 g/dL (3.4-5.0); Alkaline Phosphatase 71 U/L (46-116); Anion Gap 7.4 mmol/L (3-11); BUN 19 mg/dL (7-18); Bilirubin, Total 0.8 mg/dL (0.2-1.0); CO2 29.6 mmol/L (21.0-32.0); CREATININE 1.2 mg/dL (0.70-1.30); Calcium 8.8 mg/dL (8.5-10.1); Chloride 103 mmol/L (98-107); Estimated GFR 64.25 (mL/min/1.73m2); Glucose 98 mg/dL (74-106); Potassium 3.6 mmol/L (3.5-5.1); Sodium 140 mmol/L (136-145); Total Protein 7.2 g/dL (6.4-8.2)
[2024-02-11 22:09] LABS: Platelet Count 91 10^3/uL (130-400)
== END 2024-02-11 21:45 | disposition home or self-care (01) ==
LOC: NCHCN 21:44
PROVIDERS: PCP Family Medicine; Visit Provider Family Medicine
DX: R07.9 Chest pain, unspecified (principal)
CPT/HCPCS: 80053; 85025

== ENCOUNTER 2025-08-05 13:39 | Outpatient (CLI) | payer MEDICARE, MEDICAID, SELFPAY ==
--- NOTE | 2025-08-05 13:30 | RT.EKG_ITS ---
APPROVED REPORT Exam: Resting ECG Reason for Exam: High Risk Medication Use Patient Location: O HR:64 bpm ECG Measurements Heart Rate 64 AXIS SD 162 P 60 QRSd 144 QRS 84 QT 467 T 54 QTc 482 Conclusion Sinus rhythm...normal P axis, V-rate 50- 99 Probable left atrial enlargement...P >50mS, <-0.10mV V1 RBBB
== END 2025-08-05 13:40 | disposition home or self-care (01) ==
PROVIDERS: PCP Family Medicine; Visit Provider Family Medicine
DX: Z79.899 Other long term (current) drug therapy (principal)
CPT/HCPCS: 93005; 93010